=== PATIENT | female | born 1960 | race Caucasian/White ===

== ENCOUNTER 2017-10-30 20:47 | Observation (INO) | payer OTHER, SELFPAY ==
[2017-10-30 21:05] VITALS: BP 140/100; PULSE 124; RESP 15; TEMP 38.4; O2SAT 99
--- NOTE | 2017-10-30 21:05 | ED.ABDPAIN ---
HPI - Abdominal Pain General Chief Complaint: Abdominal Pain Stated Complaint: ABDOMINAL PAIN SINCE YESTERDAY Time Seen by Provider: 10/30/17 20:55 Source: patient and family Mode of arrival: ambulatory Limitations: no limitations History of Present Illness HPI narrative: patient presents to the emergency department with a chief complaint of gradually worsening generalized abdominal pain gradually worsening since yesterday. She started out fell generalized crampy pain and thought she might be constipated and over the course of the day has lost her appetite and now has significant right lower quadrant pain. Her pain is worse with motion and improves with rest. She denies radiation of her pain. She denies vomiting but has been nauseated. She last had solid foods last night but has had some clear liquids throughout the cours MD complaint: abdominal pain Onset (ago): day(s) Pain Consistency: constant Location: RLQ Severity: severe Quality: cramping and aching Radiation: none Migration to: no migration Relieving factors: rest Exacerbating factors: movement Associated symptoms: nausea, fever and chills Related Data Allergies Allergy/AdvReac Type Severity Reaction Status Date / Time No Known Drug Allergies Allergy Verified 10/30/17 21:08 Review of Systems Review of Systems All systems reviewed & are unremarkable except as noted in HPI and below Constitutional Reports chills, Reports fever(s), Denies lethargy and Denies weakness Eyes Denies change in vision, Denies eye discharge, Denies irritation and Denies loss of vision ENT Ears, Nose, Mouth, and Throat: Denies change in voice, Denies neck pain and Denies sore throat Cardiovascular Denies chest pain, Denies irregular heart rhythm, Denies lightheadedness, Denies palpitations, Denies dyspnea, Denies dyspnea on exertion and Denies orthopnea Respiratory Denies cough, Denies dyspnea, Denies dyspnea on exertion and Denies wheezing Gastrointestinal Gastrointestinal: Reports abdominal pain, Denies change in bowel habits, Denies diarrhea, Reports nausea and Denies vomiting Genitourinary Denies hematuria, Denies flank pain, Denies urinary incontinence and Denies urinary urgency Musculoskeletal Denies neck pain Integumentary/Breasts Denies pruritus, Denies erythema, Denies rash and Denies wounds Neurologic Denies confusion, Denies loss of vision and Denies weakness Psychiatric Denies anxiety, Denies confusion, Denies depression, Denies homicidal ideation and Denies suicidal ideation Endocrine Denies palpitations Hematologic/Lymphatic Denies easy bruising Allergic/Immunologic Denies wheezing PFSH Social History Smoking Status: Current some day smoker Exam Narrative Exam Narrative: Pleasant 57-year-old female obviously uncomfortable, clutching her right lower abdomen Initial Vital Signs Initial Vital Signs: Vital Signs Temperature 101.2 F H 10/30/17 21:05 Pulse Rate 124 H 10/30/17 21:05 Respiratory Rate 15 10/30/17 21:05 Blood Pressure 140/100 H 10/30/17 21:05 Pulse Oximetry 99 10/30/17 21:05 Const General: cooperative, well developed and acute distress Nutritional Appearance: well nourished Orientation: alert, awake, oriented x3 and not confused HENMT Head: normocephalic and atraumatic Ears: external ears normal and TM's normal bilaterally Nose: external nose normal and No nasal discharge Face and sinus: sinuses nontender, face symmetric, no sinus tenderness and No dry mucous membranes Mouth: oral mucosae normal and moist mucous membranes Teeth and gingiva: dentition normal Throat: tonsils normal and uvula midline Eyes General: appearance normal, both eyes and all related structures Eyelids: eyelids normal Conjunctivae: conjunctivae normal Sclera: sclerae normal Pupils: PERRL EOM: EOM intact bilaterally Chest Chest: normal inspection of the chest Resp Effort & Inspection: normal respiratory effort, able to speak in complete sentences, no respiratory distress and no use of accessory muscles Auscultation: clear to auscultation bilaterally, no rales, no rhonchi and no wheezes Cardio Rate: regular rate Rhythm: regular rhythm Heart Sounds: no click, no gallops, no murmurs and no rubs Pulses: normal peripheral pulses GI Inspection: non-distended Palpation: soft, no hepatosplenomegaly, No guarding, No pulsatile mass and tender ( right lower quadrant pain with a local peritonitis) Auscultation: normal bowel sounds Skin General: no rashes or lesions noted, No jaundice and No petechiae Extrem General: full ROM, no clubbing, cyanosis or edema, no pedal edema and no calf tenderness Course Orders Ordered: ED Orders 10/30/17 21:00 Urine Microscopic Stat 10/30/17 21:20 CT abdomen pelvis w con Stat Complete Blood Count AUTO DIFF Stat Comprehensive Metabolic Panel Stat Lactate (Lactic Acid) Stat Lipase Stat 10/30/17 21:35 Blood Culture Stat Piperacillin/Tazobactam/Dextrose (Zosyn) 3.375 gm in 50 mls @ 100 mls/hr IV Q6H RICARDA Last Admin: 10/30/17 23:36 Dose: 100 mls/hr Discontinued Medications Sodium Chloride (Normal Saline 0.9%) 1,000 mls @ 1,000 mls/hr IV BOLUS ONE Stop: 10/30/17 22:20 Last Admin: 10/30/17 21:54 Dose: 1,000 mls/hr Ketorolac Tromethamine (Toradol) 15 mg IV NOW ONE Stop: 10/30/17 21:53 Last Admin: 10/30/17 21:53 Dose: 15 mg Ondansetron HCl (Zofran) 4 mg IV NOW ONE Stop: 10/30/17 21:17 Last Admin: 10/30/17 21:54 Dose: 4 mg Consultations Consultation #1: called to Dr. Aguilar who was happy to accept this patient on her service, recommending IV antibiotics and close observation as opposed to immediate surgical intervention Vital Signs - 8 hr 10/30/17 21:05 10/30/17 22:32 10/30/17 23:40 Temperature 101.2 F H Pulse Rate 124 H 103 H 103 H Respiratory Rate 15 16 Blood Pressure 140/100 H Blood Pressure [Left Arm] 128/90 H 130/93 H Pulse Oximetry 99 96 97 10/31/17 00:17 Temperature Pulse Rate Respiratory Rate Blood Pressure Blood Pressure [Left Arm] 127/89 H Pulse Oximetry MDM - Abdominal Pain Differential Diagnosis Differential diagnosis: Likely abdominal pain and acute appendicitis Medical Records Attestation: I reviewed the patient's medical records. Lab Data Attestation: I reviewed the patient's lab results. Result diagrams: 10/30/17 21:20 10/30/17 21:20 Lab Results 10/30/17 10/30/17 10/30/17 Range/Units 21:00 21:20 21:20 WBC 18.8 H (4.5-11.0) X10^3/uL RBC 4.52 (4.0-5.2) X10^6/uL Hgb 13.8 (12.0-16.0) g/dL Hct 40.7 (36-46) % MCV 90.0 (80-100) fL MCH 30.6 (26-34) PG MCHC 34.0 (30-36) % RDW 13.1 (11.6-14.8) % Plt Count 268 (150-400) X10^3/uL Neut % (Auto) 83.3 H (50-75) % Lymph % (Auto) 7.2 L (25-40) % [place] % (Auto) 9.2 (3-14) % Eos % (Auto) 0.1 L (2-4) % Baso % (Auto) 0.2 (0-2) % Neut # (Auto) 07900 H (2853-9596) /uL Sodium 137 (137-145) mmol/L Potassium 3.5 (3.4-5.1) mmol/L Chloride 100 (98-107) mmol/L Carbon Dioxide 24 (22-32) mmol/L BUN 13 (7-17) mg/dL Creatinine 0.70 (0.52-1.04) mg/dL Estimated GFR > 60.0 (>60) mL/min BUN/Creatinine Ratio 18.6 (6-22) Glucose 141 H (70-100) mg/dL Lactate (0.7-2.1) mmol/L Calcium 9.4 (8.4-10.2) mg/dL Total Bilirubin 0.8 (0.2-1.3) mg/dL AST 20 (14-36) IU/L ALT 25 (9-52) IU/L Alkaline Phosphatase 79 (38-126) U/L Total Protein 7.9 (6.3-8.2) g/dL Albumin 4.4 (3.5-5.0) g/dL Globulin 3.5 (1.7-4.1) g/dL Albumin/Globulin Ratio 1.3 (1.0-2.8) Lipase 51 (23-300) U/L Urine RBC 5-10/hpf H (0-5/HPF) Urine WBC 0-1/hpf (0-5/HPF) Ur Squamous Epith Cells 0-1 /hpf Urine Bacteria Occasional (0-1) (None) Urine Mucus 3+ H (Negative) Ur Culture Indicated? Cult not indicated Micro UA Comment Not Reportable 10/30/17 Range/Units 21:20 WBC (4.5-11.0) X10^3/uL RBC (4.0-5.2) X10^6/uL Hgb (12.0-16.0) g/dL Hct (36-46) % MCV (80-100) fL MCH (26-34) PG MCHC (30-36) % RDW (11.6-14.8) % Plt Count (150-400) X10^3/uL Neut % (Auto) (50-75) % Lymph % (Auto) (25-40) % [place] % (Auto) (3-14) % Eos % (Auto) (2-4) % Baso % (Auto) (0-2) % Neut # (Auto) (5696-4715) /uL Sodium (137-145) mmol/L Potassium (3.4-5.1) mmol/L Chloride (98-107) mmol/L Carbon Dioxide (22-32) mmol/L BUN (7-17) mg/dL Creatinine (0.52-1.04) mg/dL Estimated GFR (>60) mL/min BUN/Creatinine Ratio (6-22) Glucose (70-100) mg/dL Lactate 0.6 L (0.7-2.1) mmol/L Calcium (8.4-10.2) mg/dL Total Bilirubin (0.2-1.3) mg/dL AST (14-36) IU/L ALT (9-52) IU/L Alkaline Phosphatase (38-126) U/L Total Protein (6.3-8.2) g/dL Albumin (3.5-5.0) g/dL Globulin (1.7-4.1) g/dL Albumin/Globulin Ratio (1.0-2.8) Lipase (23-300) U/L Urine RBC (0-5/HPF) Urine WBC (0-5/HPF) Ur Squamous Epith Cells Urine Bacteria (None) Urine Mucus (Negative) Ur Culture Indicated? Micro UA Comment Point of care testing: Urine Dip Bedside Urine Glucose Negative Bedside Urine Bilirubin - Negative Bedside Urine Ketone + 15 Urine Specific [place] 1.025 Bedside Urine Occult Blood +/- Bedside Urine pH 6.0 Bedside Urine Protein +/- 15 Bedside Urine Urobilinogen - Negative Bedside Urine Nitrite - Negative Bedside Urine Leukocytes - Negative Esterase Imaging Data CT scan - abdomen: Radiologist's impression: if the ana changes of the appendix suggestive of acute appendicitis. There is wall thickening of the cecum and proximal ascending colon which could be reactive from the appendicitis. Alternatively, the primary process could be colitis with reactive changes within the appendix Discharge Plan Departure Patient Disposition: Admitted As Inpatient Clinical Impression: Acute appendicitis Admit Date/Time: 10/31/17 00:09 Admit Provider: Nanci Aguilar
--- NOTE | 2017-10-30 21:20 | DI.CT.S_ITS ---
PROCEDURE: CT ABDOMEN PELVIS W CON INDICATIONS: severe RLQ pain over 24hrs, fever, guarding TECHNIQUE: After the administration of intravenous contrast, 5 mm thick sections acquired from the diaphragm to the symphysis. 5 mm coronal and sagittal reformats were acquired. For radiation dose reduction, the following was used: automated exposure control, adjustment of mA and/or kV according to patient size. COMPARISON: None. FINDINGS: Preliminary report by material handler 1st shift radiology Image quality: Excellent. ABDOMEN: Lung bases: Lung bases show mild posterior atelectasis. Heart size is normal. No hiatal hernia. Solid organs: Liver is normal in size and enhancement. A 7 mm hepatic cyst is present centrally. Gallbladder shows no calcified stones. Biliary system is non dilated. Pancreas enhances normally. Spleen is normal in size and enhancement. No adrenal nodules. Kidneys demonstrate normal size and enhancement, without hydronephrosis. Peritoneum and bowel: Small bowel is normal in caliber. The terminal ileum appears normal. There is inflammatory wall thickening and edema in the cecum and proximal ascending colon. The appendix is dilated to 1.4 mm, single wall thickness of 5 mm with prominent surrounding fat stranding. No fluid collection to suggest abscess. Sigmoid diverticulosis without diverticulitis. Nodes and vessels: No retroperitoneal or mesenteric adenopathy by size criteria. Aorta and inferior vena cava are normal in size. Miscellaneous: No ventral hernias. PELVIS: Genitourinary: Bladder wall thickness is normal. Normal uterus and ovaries. Miscellaneous: No inguinal hernias or adenopathy. Bones: No suspicious bony lesions. Multilevel degenerative lumbar disc disease. No vertebral body compression fractures. IMPRESSION: 1. Findings are consistent with acute appendicitis. There is a reactive inflammation in the cecum and ascending colon. Possibility of coexistent colitis not excluded. 2. Sigmoid diverticulosis without diverticulitis. 3. Subcentimeter simple hepatic cyst. Findings are concordant with the preliminary report. Dictated by: Bay Wagner M.D. on 10/31/2017 at 7:53 Approved by: Bay Wagner M.D. on 10/31/2017 at 8:00
[2017-10-30 21:37] LABS: Add Manual Diff / Slide Review NO; Basophils Percent Auto 0.2 % (0-2); Eosinophils Percent Auto 0.1 % (2-4); Hematocrit 40.7 % (36-46); Hemoglobin 13.8 g/dL (12.0-16.0); Lymphocytes Percent Auto 7.2 % (25-40); Mean Corpuscular Hemoglobin 30.6 PG (26-34); Monocytes Percent Auto 9.2 % (3-14); Neutrophils Absolute Auto 15600 /uL (3000-5900); Neutrophils Percent Auto 83.3 % (50-75); Platelet Count 268 X10^3/uL (150-400); Red Blood Cell Count 4.52 X10^6/uL (4.0-5.2); Red Cell Distribution Width 13.1 % (11.6-14.8); White Blood Cell Count 18.8 X10^3/uL (4.5-11.0)
[2017-10-30 21:44] LABS: Alanine Aminotransferase 25 IU/L (9-52); Albumin 4.4 g/dL (3.5-5.0); Albumin Globulin Ratio 1.3 (1.0-2.8); Alkaline Phosphatase 79 U/L (38-126); Aspartate Aminotransferase 20 IU/L (14-36); BUN Creatinine Ratio 18.6 (6-22); Bilirubin Total 0.8 mg/dL (0.2-1.3); Blood Urea Nitrogen 13 mg/dL (7-17); Calcium 9.4 mg/dL (8.4-10.2); Carbon Dioxide 24 mmol/L (22-32); Chloride 100 mmol/L (98-107); Estimated Glomerular Filt Rate > 60.0 mL/min (>60); Globulin 3.5 g/dL (1.7-4.1); Glucose 141 mg/dL (70-100); HEMOLYSIS < 15 (0-50); Lipase 51 U/L (23-300); Potassium 3.5 mmol/L (3.4-5.1); Sodium 137 mmol/L (137-145); Total Protein 7.9 g/dL (6.3-8.2)
[2017-10-30 21:45] LABS: Lactate (Lactic Acid) 0.6 mmol/L (0.7-2.1)
[2017-10-30] MEDS: KETOROLAC 60 MG/2 ML VIAL 15 MG IV (21:53)
[2017-10-30] MEDS: SODIUM CHLORIDE 0.9% 1,000 ML 1000 ML IV (21:54)
[2017-10-30] MEDS: ONDANSETRON 4 MG/2 ML INJ IV (21:54)
--- NOTE | 2017-10-30 21:59 | PC.NURSE ---
pt refused zofran
[2017-10-30 22:18] LABS: Bacteria Urine Occasional (0-1); Mucus Urine 3+ (Negative); RBC Urine 5-10/HPF (0-5/HPF); Squamous Epithelial Cell Urine 0-1 /HPF; WBC Urine 0-1/HPF (0-5/HPF)
[2017-10-30 22:19] LABS: Culture Indicated Urine Cult Not Indicated
[2017-10-30 22:32] VITALS: BP 128/90; PULSE 103; RESP 16; O2SAT 96
[2017-10-30] MEDS: PIPERACILLIN-TAZO 3.375 GM/50 ML FROZ.PIGGY IV (23:36)
[2017-10-30 23:40] VITALS: BP 130/93; PULSE 103; O2SAT 97
[2017-10-31] VITALS (23 sets, daily range): BP systolic 101–141; BP diastolic 61–89; PULSE 77–102; RESP 11–100; TEMP 36.2–37.8; O2SAT 92–100; BMI 26.6
--- NOTE | 2017-10-31 | PATH_ITS ---
[facility] Accession Number: [id number] . 01 Material submitted: . APPENDIX . 02 Diagnosis: Appendix: Acute necrotizing appendicitis. MRV/11/02/2017 . 02 Electronically signed: . Coleman Johansen MD, Pathologist NPI- [id number] . 01 Gross description: . Received in formalin, labeled 1. Appendix, is an appendix (length-6.7 cm, diameter-0.8 cm) with [id number] serosa with attached mesoappendix (up to 2.3 cm in depth) and a stapled resection margin. The lumen contains red-brown, solid soft material. The wall is up to 0.4 cm thick. No nodules, masses or lesions are identified. The resection margin is inked black. Section code: (A1) resection margin en face and two additional slices; (A2) one-half of the bivalved tip. ([id number]) /MRV . 02 Pathologist provided ICD-10: K35.80 . 02 CPT . 349294 Performed at: 01 [facility] [address] [facility], [place], [place] [id number] MD Adam Kessler MD Phone: [phone] Performed at: [address] [facility] [id number] [place], [place] [id number] MD Sanju Kong MD Phone: [phone]
[2017-10-31] MEDS: SODIUM CHLORIDE 0.9% 1,000 ML 1000 ML IV (00:47)
[2017-10-31] MEDS: HYDROMORPHONE PCA 6 MG/30 ML PCA.VIAL IV ×2 (01:06→14:15)
[2017-10-31] MEDS: metroNIDAZOLE 500 MG/100 ML PIGGYBACK 100 MG IV ×2 (01:18→08:50)
--- NOTE | 2017-10-31 04:51 | PC.NURSE ---
Admission Note Pt arrived on unit from ED at 0045 via wheelchair. Pt able to ambulate to bed/ restroom with stand by assist. AOx3. Reports no N/V. Pain is a 5/10 with movement. Pt reports came to ED with yesterday evening after having right lower quadrant pain starting the day prior. RISK AND INSURANCE MANAGER initiated. Pt oriented to room/ RISK AND INSURANCE MANAGER.
[2017-10-31 05:15] LABS: Add Manual Diff / Slide Review NO; Basophils Percent Auto 0.2 % (0-2); Eosinophils Percent Auto 0.1 % (2-4); Hematocrit 36.7 % (36-46); Hemoglobin 12.5 g/dL (12.0-16.0); Lymphocytes Percent Auto 14.2 % (25-40); Mean Corpuscular Hemoglobin 30.7 PG (26-34); Mean Corpuscular Volume 90.4 fL (80-100); Monocytes Percent Auto 6.8 % (3-14); Neutrophils Absolute Auto 11500 /uL (3000-5900); Neutrophils Percent Auto 78.7 % (50-75); Platelet Count 227 X10^3/uL (150-400); Red Blood Cell Count 4.06 X10^6/uL (4.0-5.2); White Blood Cell Count 14.7 X10^3/uL (4.5-11.0)
[2017-10-31] MEDS: PIPERACILLIN-TAZO 3.375 GM/50 ML FROZ.PIGGY IV ×4 (05:33→22:18)
[2017-10-31] MEDS: HYDROMORPHONE PCA 6 MG/30 ML PCA.VIAL 1.8 MG IV (05:40)
[2017-10-31] MEDS: ONDANSETRON 4 MG/2 ML INJ IV ×3 (09:46→14:40)
--- NOTE | 2017-10-31 11:07 | CM.DANOTE ---
DCP/Assessment:Reviewed chart. Patient is a 57yr old female admitted to [facility] with abdominal pain/acute appendicitis. Admitting MD is Dr. Aguilar. PCP listed is Dr. Church (now retired). Primary payor is 1)[employer] 2)[facility] out of state. Met with patient explained CM/SW role. Patient alert and oriented, resting comfortably in bed at time of visit. Patient reports that she is I in all ADL's at baseline. Patient lives and works locally in [place]. Patient unsure about whether or not she will be going to surgery today? Patient waiting on surgeon to round. Patient reports that over the last few months she has been assisting her spouse/Jose at home. Per patient spouse has been in/out of hospitals with cardiac, ortho, and infection issues. P: Notified patient that CM team would continue to follow for d/c planning needs. Patient appreciative. Anticipate that patient will d/c home when stable. White board in patient's room updated with CM team name/number. CASSIUS Rivera Discharge Planning/Care Management CM Discharge Assessment Start: 10/31/17 11:04 Freq: Status: Active Protocol: Document 10/31/17 11:04 FERNANDO (Rec: 10/31/17 11:06 Ryan [id number]) Discharge Planning Assessment Assigned Data Report Analyst CASSIUS/Delilah History Provided By Patient Has Patient been admitted in last 30 No days? Prior Living Arrangements House Household Members spouse Type of transporation used prior to Drives own vehicle admit Independent with ADL's Yes Is patient alert and oriented? Yes Caregiver for Another Yes: Spouse on as needed basis . Discharge Plan Home Transportation Arrangement Spouse Review Status In Process Next Review Type Continued Stay Review
[2017-10-31] MEDS: LACTATED RINGERS 1,000 ML 42 ML IV ×2 (12:49→14:20)
[2017-10-31] MEDS: fentaNYL 100 MCG/2 ML INJ 50 MCG IV ×2 (13:13→15:23)
--- NOTE | 2017-10-31 13:39 | P.HP_ITS ---
History of Present Illness Date Patient Seen: 10/31/17 Time Patient Seen: 13:37 Chief complaint: ABDOMINAL PAIN SINCE YESTERDAY Narrative: Very pleasant 57-year-old lady who presented to the emergency room after several days of crampy abdominal pain. She was examined there and underwent a CT scan which showed appendicitis and ascending colitis. I have been consulted for definitive management. Patient History Family & Social History Family History: Reviewed 10/31/17 by Nanci Aguilar MD Social History: household members spouse Prior Living Arrangements House Safety & Behavioral: Feels Safe in Current Yes Environment Been Physically Hurt or No Threatened By a Person Suicidal Ideation Description None Suicide Plan Description No Plan Tobacco & Substance use: Tobacco type cigarettes Smoking Status Current some day smoker alcohol intake frequency 0-2 drinks per day Substance Use Type does not use Meds Home Medications Medication Instructions Recorded Confirmed Type No Known Home Medications 10/31/17 10/31/17 History Allergies Allergy/AdvReac Type Severity Reaction Status Date / Time No Known Drug Allergies Allergy Verified 10/30/17 21:08 Review of Systems Review of Systems All systems reviewed & are unremarkable except as noted in HPI and below Exam Vital Signs (past 8 hours): - 10/31/17 08:00 10/31/17 12:17 10/31/17 12:41 Temperature 98.4 F 98.3 F 97.1 F L Pulse Rate 87 83 84 Respiratory Rate 16 16 16 Blood Pressure 120/78 125/79 H 126/81 H Pulse Oximetry 94 93 Oxygen Delivery Method Room Air Narrative Exam Narrative: Very pleasant 57-year-old lady in mild physical distress HEENT: Is normocephalic and atraumatic, her pupils are equal round and reactive to light accommodation, sclera are notably anicteric Lungs: Clear bilaterally, no wheezes or rales Heart: Regular rate and rhythm without murmur Abdomen: Soft, profound tenderness to palpation in the right lower quadrant, positive voluntary guarding and heel tap. No other abdominal incisions are noted. No umbilical or inguinal hernias are appreciated. Extremities: Warm and well perfused without edema Objective Labs Result Diagrams: 10/31/17 05:00 10/30/17 21:20 Labs: Laboratory Results - last 24 hr 10/30/17 10/30/17 10/30/17 21:00 21:20 21:20 WBC 18.8 H RBC 4.52 Hgb 13.8 Hct 40.7 MCV 90.0 MCH 30.6 MCHC 34.0 RDW 13.1 Plt Count 268 Neut % (Auto) 83.3 H Lymph % (Auto) 7.2 L [place] % (Auto) 9.2 Eos % (Auto) 0.1 L Baso % (Auto) 0.2 Neut # (Auto) 19393 H Sodium 137 Potassium 3.5 Chloride 100 Carbon Dioxide 24 BUN 13 Creatinine 0.70 Estimated GFR > 60.0 BUN/Creatinine Ratio 18.6 Glucose 141 H Lactate Calcium 9.4 Total Bilirubin 0.8 AST 20 ALT 25 Alkaline Phosphatase 79 Total Protein 7.9 Albumin 4.4 Globulin 3.5 Albumin/Globulin Ratio 1.3 Lipase 51 Urine RBC 5-10/hpf H Urine WBC 0-1/hpf Ur Squamous Epith Cells 0-1 /hpf Urine Bacteria Occasional (0-1) Urine Mucus 3+ H Ur Culture Indicated? Cult not indicated Micro UA Comment Not Reportable 10/30/17 10/31/17 21:20 05:00 WBC 14.7 H RBC 4.06 Hgb 12.5 Hct 36.7 MCV 90.4 MCH 30.7 MCHC 34.0 RDW 13.0 Plt Count 227 Neut % (Auto) 78.7 H Lymph % (Auto) 14.2 L [place] % (Auto) 6.8 Eos % (Auto) 0.1 L Baso % (Auto) 0.2 Neut # (Auto) 70939 H Sodium Potassium Chloride Carbon Dioxide BUN Creatinine Estimated GFR BUN/Creatinine Ratio Glucose Lactate 0.6 L Calcium Total Bilirubin AST ALT Alkaline Phosphatase Total Protein Albumin Globulin Albumin/Globulin Ratio Lipase Urine RBC Urine WBC Ur Squamous Epith Cells Urine Bacteria Urine Mucus Ur Culture Indicated? [place] [address] CT Scan Report Signed Patient: Arcelia Reyes MR#: [id number] : 1960 Acct:[id number] Age/Sex: 57 / F Date of Service: 10/30/17 Loc: 211-1 Accession Number: [id number] Procedure: CT abdomen pelvis w con Ordering Provider: Praveen Rasheed D.O. PROCEDURE: CT ABDOMEN PELVIS W CON INDICATIONS: severe RLQ pain over 24hrs, fever, guarding TECHNIQUE: After the administration of intravenous contrast, 5 mm thick sections acquired from the diaphragm to the symphysis. 5 mm coronal and sagittal reformats were acquired. For radiation dose reduction, the following was used: automated exposure control, adjustment of mA and/or kV according to patient size. COMPARISON: None. FINDINGS: Preliminary report by cnc machinist 2nd shift radiology Image quality: Excellent. ABDOMEN: Lung bases: Lung bases show mild posterior atelectasis. Heart size is normal. No hiatal hernia. Solid organs: Liver is normal in size and enhancement. A 7 mm hepatic cyst is present centrally. Gallbladder shows no calcified stones. Biliary system is non dilated. Pancreas enhances normally. Spleen is normal in size and enhancement. No adrenal nodules. Kidneys demonstrate normal size and enhancement, without hydronephrosis. Peritoneum and bowel: Small bowel is normal in caliber. The terminal ileum appears normal. There is inflammatory wall thickening and edema in the cecum and proximal ascending colon. The appendix is dilated to 1.4 mm, single wall thickness of 5 mm with prominent surrounding fat stranding. No fluid collection to suggest abscess. Sigmoid diverticulosis without diverticulitis. Nodes and vessels: No retroperitoneal or mesenteric adenopathy by size criteria. Aorta and inferior vena cava are normal in size. Miscellaneous: No ventral hernias. PELVIS: Genitourinary: Bladder wall thickness is normal. Normal uterus and ovaries. Miscellaneous: No inguinal hernias or adenopathy. Bones: No suspicious bony lesions. Multilevel degenerative lumbar disc disease. No vertebral body compression fractures. IMPRESSION: 1. Findings are consistent with acute appendicitis. There is a reactive inflammation in the cecum and ascending colon. Possibility of coexistent colitis not excluded. 2. Sigmoid diverticulosis without diverticulitis. 3. Subcentimeter simple hepatic cyst. Findings are concordant with the preliminary report. Dictated by: Bay Wagner M.D. on 10/31/2017 at 7:53 Approved by: Bay Wagner M.D. on 10/31/2017 at 8:00 Assessment & Plan Plan: Assessment/Plan Narrative: Very pleasant 57-year-old lady. She is extremely healthy otherwise and very active. She has acute appendicitis on CT scan with minimal evidence of proximal colitis. I have recommended a laparoscopic appendectomy with indicated procedures. After careful discussion of the risks and benefits she has expressed a desire to complete the procedure today. Quality VTE Deep Vein Thrombosis/Pulmonary Embolism Present on Admission: No
--- NOTE | 2017-10-31 14:02 | SUR.OPER ---
Supine on padded OR bed, head on pillow, safety belt at thigh, left arm padded and tucked at side. Right arm secured on padded arm oard <90 degrees abduction. Legs uncrossed. Padded footboard in place. Tape over blanket to secure lower legs.
[2017-10-31] MEDS: LIDOCAINE 1% W/EPI INJ 20 ML INJ (14:15)
[2017-10-31] MEDS: BUPIVACAINE 0.5% W/ EPI (PF) 30 ML VIAL INJ (14:15)
--- NOTE | 2017-10-31 14:21 | PM.OP.1 ---
Operative Date/Time/Diagnoses Date of procedure: 10/31/17 Time of procedure: 14:22 Pre-op diagnosis: Acute appendicitis Post-op diagnosis: same Procedure & Clinicians Procedure: Laparoscopic appendectomy Same procedure as scheduled: Yes Indications: Acute appendicitis Surgeon: Nanci Aguilar Click Yes if Unassisted: Yes Anesthesia Type: General (Dr. Addison) Operative Notes Findings: Acutely inflamed appendix without gross evidence of perforation or abscess Closure Type: primary Specimen(s): none sent (Appendix in formalin to pathology) Estimated Blood Loss (mL): 10 Procedure in detail: After obtaining informed consent, the patient was brought to the operating room and placed in the supine position on the operating table. Following successful induction of general endotracheal anesthesia, appropriate padding of all krzysztof prominences, and placement of appropriate monitors, the abdomen was prepped and draped in the standard surgical fashion. A timeout was held per SCOAP protocol. Following infiltration with local anesthetic to create a field block, an incision was created inferior to the umbilicus and carried down through the skin and subcutaneous tissue to reveal the fascia below. 2-0 Vicryl retention sutures were placed on either side of midline and the abdomen was entered under direct vision using an 11 blade scalpel. A 12 mm blunt-tipped Callahan trocar was placed in the abdominal cavity and it was insufflated to 15 mmHg pressure. The patient was placed in Trendelenburg position with the left side rotated toward the floor. Under direct vision, a second 5 mm trocar was placed in the right upper quadrant and a third 5 mm trocar was placed midway between the umbilicus and the pubis. The camera was placed in the abdominal cavity and we immediately visualized the appendix in the anti-cecal position. The appendix was grasped and elevated to reveal its attachment to the cecum. 3 loads of a laparoscopic stapling device were used to liberate the appendix and its mesentery from its attachment to the cecum. The specimen was placed in a bag and removed via the umbilical port. The wounds were checked for hemostasis. The operative site was visualized and irrigated with warm saline solution. The abdomen was aspirated free of all fluid and particulate matter. The trochars were removed under direct vision. The abdomen was desufflated by giving the patient a large Valsalva maneuver. The umbilical incision was closed in 2 layers with Vicryl and Monocryl suture. Monocryl sutures were placed in the other 2 port sites. All sponge, needle, and instrument counts were correct at the conclusion of the case. The patient was allowed to awaken from anesthesia without difficulty and taken to the post-anesthesia care unit in good condition. Complications: none Condition: stable Disposition: PACU Plan for aftercare: 1. Return [facility] for continued convalescence and supportive care 2. Continue antibiotics for an additional 24 hr. If she does well overnight we can consider discharge in the morning on oral antibiotics.
--- NOTE | 2017-10-31 15:01 | SUR.PHASEI ---
patient ready for admission report called to primary RN. Plan to hold patient and transfer at 1530 due to change of shift.
--- NOTE | 2017-10-31 15:10 | SUR.PHASEI ---
states pain at tolerable level continues at 3/10. states nausea resolved. able to sleep.
[2017-10-31] MEDS: SODIUM CHLORIDE 0.9% 1,000 ML 125 ML IV (16:26)
[2017-10-31] MEDS: KETOROLAC 30 MG/ML VIAL IV ×2 (17:44→23:26)
[2017-10-31] MEDS: OXYCODONE/ACETAMINOPHEN 5/325 TABLET 1 TAB PO (19:01)
[2017-10-31] MEDS: DOCUSATE 250 MG CAPSULE PO (20:23)
--- NOTE | 2017-10-31 22:38 | PC.NURSE ---
Pt arrived back from PACU to AC floor at approx 1535. Pt wide awake and talking with staff. Denies nausea. 3 lap sites with dermabond CDI, [employer] M[employer]. Pt denies numbness and tingling. Upon arrival, pt sating 89% RA, placed pt on 3 L NC, sating 94%. Encouraged deep breathing exercises. Pt later c/o O2 via NC drying out my throat and making me cough, but it hurts to cough. Pt using O2 intermittently, with continuous pulse ox in place, 02 saturation on RA 92-94%. Call light in reach, pt calling appropriately and making needs known to staff.
[2017-11-01] MEDS: OXYCODONE/ACETAMINOPHEN 5/325 TABLET 1 TAB PO ×2 (00:29→08:55)
[2017-11-01] MEDS: SODIUM CHLORIDE 0.9% 1,000 ML 125 ML IV ×2 (01:33→10:21)
[2017-11-01] MEDS: KETOROLAC 30 MG/ML VIAL IV ×2 (05:31→12:57)
[2017-11-01] MEDS: PIPERACILLIN-TAZO 3.375 GM/50 ML FROZ.PIGGY IV ×2 (05:31→12:01)
[2017-11-01 05:42] VITALS: BP 117/80; PULSE 84; RESP 16; TEMP 36.2; O2SAT 96
[2017-11-01 07:51] VITALS: BP 120/78; PULSE 80; RESP 16; TEMP 36.8; O2SAT 99
[2017-11-01] MEDS: DOCUSATE 250 MG CAPSULE PO (08:55)
--- NOTE | 2017-11-01 12:23 | PC.NURSE ---
Pt given 1 percolone for pain this am, 3 small incisions with durmobond and cdi. Pt is up independently in room. Btx4 and abdomen soft. Pt is looking forward to being discharged later today. No nausea and tolerating general diet. IV site wnl and ivf infusing.
[2017-11-01 12:32] VITALS: BP 145/95; PULSE 80; RESP 16; TEMP 36.9; O2SAT 99
--- NOTE | 2017-11-01 14:42 | CM.DPC ---
Met with patient in her room today. She is fully A&O postop, I feel soooo much better. She had appy surgery performed yesterday, 10/31. She was independent in all ADLs and was recently CG for her spouse who has had a family , 2 occurrences of a-fib and cardioversion, knee infection and other difficulties. He will be her CG at home, but she also adds that they have 2 grown sons who are now living in [facility], so they are nearby and plan to help with their parents' needs during this summer break. 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 P: To d/c to home when stable. Family members will pick her up in private car.
--- NOTE | 2017-11-01 16:01 | CM.DANOTE ---
Pt up as anna i room, denies any discomfort. HL RAC d/c'd intact. Discharge instructions and RX for tramadol given to pt. w/apparent understanding. Awaiting transportation home.
--- NOTE | 2017-11-01 16:04 | PC.NURSE ---
Addendum entered by Lyudmila Rivera R.N. 11/01/17 16:48: Pt escorted to waiting vehicle by staff. D/C'd in stable post op condition. Original Note: Addendum entered by Lyudmila Rivera R.N. 11/01/17 16:11: Original Note: Pt up ad ib in room, denies any discomfort. HL RAC d/c'd intact. Discharge instructions and RX for tramadol given to pt. w/apparent understanding. Awaiting transportation home.
== END 2017-11-01 16:35 | disposition home or self-care (01) ==
LOC: ED 23:00 → AC 10-31 09:13
PROVIDERS: Admitting Provider Surgery; Emergency Provider Emergency Medicine; Family Provider Family Medicine; PCP Family Medicine; Visit Provider Surgery
PROC: 0DTJ4ZZ Resection of Appendix, Percutaneous Endoscopic Approach (ICD-10-PCS; CPT 44970; principal; 2017-10-31 13:15)
DX: K35.80 Unspecified acute appendicitis (principal); R10.9 Unspecified abdominal pain; F17.210 Nicotine dependence, cigarettes, uncomplicated
CPT/HCPCS: 44970; 36415; 36591; 74177; 80053; 81003; 81015; 83605; 83690; 85025; 87040; 96361; 96365; 96366; 96375; 99220; 99283; 99285; G0378; J0330; J1100; J1885; J2250; J2405; J2543; J2704; J3010; Q9967

== ENCOUNTER → 2020-07-02 09:55 | Outpatient (CLI) | payer OTHER, SELFPAY ==
[2017-10-31 00:45] VITALS: BMI 26.6
[2020-07-02] MEDS: COVID-19 VACC, Ad26(JANSSEN)/PF 0.5 ML IM (10:20)
== END ==
PROVIDERS: Visit Provider Internal Medicine
DX: Z23 Encounter for immunization (principal)
CPT/HCPCS: 0031A; 91303

== ENCOUNTER → 2021-02-04 11:15 | Outpatient (CLI) | payer OTHER, SELFPAY ==
[2017-10-31 00:45] VITALS: BMI 26.6
[2021-02-04 13:28] LABS: COVID19 -Nasal RAPID POSITIVE (Negative)
== END ==
PROVIDERS: Visit Provider Nurse Practitioner Family
DX: U07.1 COVID-19 (principal)
CPT/HCPCS: 87635